=== PATIENT | male | born 1950 | race African-American/Black ===

== ENCOUNTER 2017-11-12 20:20 | Emergency (ER) | payer MEDICARE, MEDICAID ==
[~2017-11-12] VITALS: Ht 177.8 cm; Wt 84.0 kg
[~2017-11-12 20:20] MED LIST: HYDR-3927
[2017-11-12] MEDS ORDERED: KETOROLAC 60MG/2ML VIAL IM ONE (23:30)
[2017-11-12] MEDS ORDERED: CYCLOBENZAPRINE 10MG TABLET PO ONE (23:30)
[2017-11-13 01:00] VITALS: BP 136/84
== END 2017-11-13 01:12 | disposition home or self-care (01) ==
LOC: ER 20:20
DX: M54.42 Lumbago with sciatica, left side (principal); I10 Essential (primary) hypertension; Z88.6 Allergy status to analgesic agent; Z88.0 Allergy status to penicillin
CPT/HCPCS: 96372; 99283; J1885